=== PATIENT | female | born 1955 | race Caucasian/White ===

== ENCOUNTER → 2017-09-04 | Day surgery (SDC) | payer BC, OTHER ==
--- NOTE | 2017-09-01 12:49 | Diagnostic Imaging Report ---
PROCEDURE: Frontal and lateral views of the chest. COMPARISON: None. INDICATIONS: PRE-OP FINDINGS: Lines/tubes: None. Lungs: The lungs are well inflated and clear. There is no evidence of pneumonia or pulmonary edema. Pleura: There is no pleural effusion or pneumothorax. Stable biapical pleural-parenchymal scarring. Heart and mediastinum: Cardiac silhouette is unremarkable. Pulmonary vascular is normal. Bones: No acute bony abnormality. Slight rightward curvature of the thoracic spine, which may be partly positional. IMPRESSION: 1. No acute cardiopulmonary abnormalities. Rd Dominguez M.D. Dictated by: Rd Dominguez M.D. on 09/01/2017 at 12:51 Electronically approved by: Rd Dominguez M.D. on 09/01/2017 at 12:51
[~2017-09-04] MED LIST: BUPIVACAINE HCL 0.5% 10ML MPF VIAL INJ ONE; CEFAZOLIN SOD 2 GM/D5W 50ML 50 ML IV ONE; DEXAMETHASONE SOD PHOS INJ 4 MG/ML VIAL ONE; FENTANYL CITRATE/PF 100MCG/2 ML INJ ONE; HYZAAR 100-12.1 EACH PO; LIDOCAINE HCL 2% LOCAL INJ 5 ML SDV VIAL INJ ONE; MIDAZOLAM HCL 2 MG/2 ML VIAL ONE; MUPIROCIN 2% OINT 22 GM TUBE ONE; ONDANSETRON HCL INJ 2 MG/ML VIAL ONE; PROPOFOL IV EMULSION 10 MG/ML 20 ML VIAL ONE; SEVOFLURANE INHAL SOLN 250 ML PEN BTL ONE; TOPROL XL100 MG PO
--- OUTSIDE RECORDS SUMMARY | 2017-09-04 06:18 | XMS REPORT ---
Author Author [facility] Address Unknown Phone Unavailable Care Team Providers Care Hotel Reservationist Name Role Phone NAHID POWERS Unavailable Unavailable Problems This patient has no known problems. Allergies, Adverse Reactions, Alerts This patient has no known allergies or adverse reactions. Medications This patient has no known medications. Results Test Description Test Time Test Comments Text Results Atomic Results Result Comments CHEST 2 VIEWS [place] [address] Patient Name: HERNANDEZ SOSA MR #: [id number] : 1955 Age/Sex: 62/F Req # : [id number] Adm Physician: Ordered by: NAHID POWERS DPM Report #: [id number] Location: OR Room/Bed: Procedure: [id number] DX/CHEST 2 VIEWS Exam Date: 09/01/17 Exam Time: 1215 REPORT STATUS: Signed PROCEDURE: Frontal and lateral views of the chest. COMPARISON: None. INDICATIONS: PRE-OP FINDINGS: Lines/tubes: None. Lungs: The lungs are well inflated and clear. There is no evidence of pneumonia or pulmonary edema. Pleura: There is no pleural effusion or pneumothorax. Stable biapical pleural- parenchymal scarring. Heart and mediastinum: Cardiac silhouette is unremarkable. Pulmonary vascular is normal. Bones: No acute bony abnormality. Slight rightward curvature of the thoracic spine, which may be partly positional. IMPRESSION: 1. No acute cardiopulmonary abnormalities. Negro Rizvi M.D. Dictated by: Negro Rizvi M.D. on 09/01/2017 at 12:51 Electronically approved by: Negro Rizvi M.D. on 09/01/2017 at 12:51 Dictated By: NEGRO RIZVI MD 1251 Transcribed By: JAKE on 09/01/17 1251 COPY TO: NAHID POWERS DPM
--- NOTE | 2017-09-07 15:52 | Operative Report ---
Audio cutting in and out in some portions of the report DATE OF PROCEDURE: September 04, 2017 AGE: 62 ROOM NUMBER: Outpatient [facility] PREOPERATIVE DIAGNOSES 1. 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 2. Neuroma 3rd intermetatarsal space, left foot. POSTOPERATIVE DIAGNOSES 1. 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 2. Neuroma 3rd intermetatarsal space, left foot. TITLES OF THE OPERATION 1. Neurolysis 2nd intermetatarsal space of the left foot. 2. Excision of neuroma, 3rd intermetatarsal space, left foot. ANESTHESIA: General endotracheal. HEMOSTASIS: A left thigh tourniquet to 350 mmHg for hemostasis. PROCEDURE IN DETAIL: The patient was taken to operating room in a mildly sedated state and placed on the operating table in supine position. Following induction of general anesthetic, the left lower extremity elevated to 60 degrees to exsanguinate before inflating the pneumatic thigh tourniquet to 350 mmHg with good hemostasis to lower extremities. The patient was placed upon the operating table prior to performing the procedure. Neurolysis of 2nd intermetatarsal space of the left foot. A linear longitudinal incision was made overlying the 2nd intermetatarsal space. Incision was deepened with sharp and blunt dissection. Down to the level of the transverse intermetatarsal ligament, which was suctioned to reveal the entrapped 2nd intermetatarsal space nerve underlying this area was traced free proximally and distally and noted to be adequately released. The area was irrigated with copious amounts of sterile saline solution. Attention was then directed to the 3rd intermetatarsal space. A linear longitudinal incision was placed and the 3rd intermetatarsal space neuroma was then dissected free. Transverse intermetatarsal ligament was sectioned and the underlying nerve was removed that area was 3rd intermetatarsal space metatarsal head. After excision of the neuroma the area was irrigated with copious amounts of sterile saline solution. TLS drain was installed and the Vicryl human tissue allograft was injected into the area of the transected nerve and formerly entrapped nerve to facilitate healing. The appropriate mildly compressive dressings were applied. Patient left the operating room, vital signs stable in apparent satisfactory condition having tolerated both anesthetic and procedure very well. Job#: [id number] CQ
== END | disposition home or self-care (01) ==
LOC: OR 06:15
PROVIDERS: ATTEND Podiatrist Foot Surgery
DX: G57.62 Lesion of plantar nerve, left lower limb (principal); G58.8 Other specified mononeuropathies; I10 Essential (primary) hypertension; Z01.810 Encounter for preprocedural cardiovascular examination; Z01.818 Encounter for other preprocedural examination
CPT/HCPCS: 28080; 64704; 71046; 88305; 93005; J1100; J2001; J2250; J2405; Q4100; 88304